=== PATIENT | female | born 1965 | race Caucasian/White ===

== ENCOUNTER → 2017-09-16 14:16 | Outpatient (CLI) | payer OTHER, MEDICAID, SELFPAY ==
[2017-09-16 14:49] LABS: INR 0.9 (0.9-1.3); Prothrombin Time 9.9 SECONDS (10.1-12.7)
[2017-09-16 14:51] LABS: PTT Partial Thromboplastin Tim 29 SECONDS (26.4-36.2)
[2017-09-16 14:57] LABS: Alanine Aminotransferase 30 IU/L (9-52); Albumin Globulin Ratio 1.3 (1.0-2.8); Alkaline Phosphatase 71 U/L (38-126); Aspartate Aminotransferase 25 IU/L (14-36); Bilirubin Total 0.5 mg/dL (0.2-1.3); Blood Urea Nitrogen 14 mg/dL (7-17); Carbon Dioxide 26 mmol/L (22-32); Chloride 104 mmol/L (98-107); Estimated Glomerular Filt Rate > 60.0 mL/min (>60); Globulin 3.1 g/dL (1.7-4.1); Glucose 99 mg/dL (70-100); HEMOLYSIS < 15 (0-50); Sodium 142 mmol/L (137-145); Total Protein 7.1 g/dL (6.3-8.2)
[2017-09-16 15:04] LABS: Hematocrit 24.7 % (36-46); Hemoglobin 8.1 g/dL (12.0-16.0); Mean Corpuscular HGB Conc 32.9 % (30-36); Mean Corpuscular Hemoglobin 24.6 PG (26-34); Mean Corpuscular Volume 74.7 fL (80-100); Red Blood Cell Count 3.31 X10^6/uL (4.0-5.2); Red Cell Distribution Width 21.9 % (11.6-14.8); White Blood Cell Count 2.8 X10^3/uL (4.5-11.0)
[2017-09-16 15:28] LABS: Add Manual Diff / Slide Review YES; Platelet Count 6 X10^3/uL (150-400)
[2017-09-16 15:36] LABS: Neutrophils Absolute Manual 224 /uL (3000-5900); Total Cells Counted 50
[2017-09-16 15:37] LABS: Anisocytosis 2+; Poikilocytosis 2+; Polychromasia 1+
[2017-09-20 09:43] LABS: Hepatitis A Antibody IgM NONREACTIVE; Hepatitis B Core Antibody IgM NONREACTIVE; Hepatitis B Surface Antigen NONREACTIVE; Hepatitis C Antibody NONREACTIVE
== END ==
PROVIDERS: Visit Provider Dentist Oral and Maxillofacial Surgery
DX: D69.6 Thrombocytopenia, unspecified (principal)
CPT/HCPCS: 36415; 80053; 80074; 85025; 85610; 85730

== ENCOUNTER 2017-09-16 18:00 | Emergency (ER) | payer OTHER, MEDICAID, SELFPAY ==
[2017-09-16] VITALS (7 sets, daily range): BP systolic 119–141; BP diastolic 67–76; PULSE 94–116; RESP 14–20; TEMP 36.6; O2SAT 96–100; BMI 19.9
--- NOTE | 2017-09-16 19:01 | ED_ITS ---
HPI - Recheck/Abnormal Lab/Rx General Chief Complaint: Recheck/Abnormal Lab/Rx Stated Complaint: states emergency platlett transfusion Time Seen by Provider: 09/16/17 18:15 Source: patient Mode of arrival: ambulatory Limitations: no limitations History of Present Illness HPI narrative: Otherwise healthy 52-year-old female who approximately 1 month ago saw a provider for TMJ issues. She was scheduled to follow up with a oral maxillofacial surgeon today to discuss these issues. She states that she was sent for blood work prior to this appointment and was called by that doctor's office to come to the emergency department immediately because her blood counts were low. Patient states that for the past year she has been bruising easily. She thinks that it has not changed in the past year. Denies any fevers. Denies any vomiting of blood. Denies any blood in her stool. States that she still is getting her menstrual cycles. She states that she has heavy short menstrual cycles but this is not new for her. No recent antibiotics. No recent medicines. No recent travel. Denies alcohol. Denies drug use. Denies smoking. Denies fatigue. No family history of bleeding problems. Related Data Allergies Allergy/AdvReac Type Severity Reaction Status Date / Time ibuprofen Allergy Verified 09/16/17 18:19 Sulfa (Sulfonamide Allergy Verified 09/16/17 18:19 Antibiotics) Review of Systems Constitutional Denies chills, Denies fever(s), Denies frequent falls, Denies headache(s), Denies lethargy and Denies weakness Eyes Denies change in vision, Denies diplopia and Denies loss of vision ENT Ears, Nose, Mouth, and Throat: Denies dental pain, Denies dysphagia, Denies vertigo, Denies dizziness, Denies dry mouth, Denies headache(s), Denies lip swelling, Denies epistaxis, Reports mouth lesions (Red spots in the back of her mouth), Denies mouth pain, Denies tinnitus, Denies sinus pain, Denies sore throat and Denies throat swelling Comments: TMJ pain 1 month ago but that has improved Cardiovascular Denies chest pain, Denies syncope, Denies irregular heart rhythm, Denies lightheadedness, Denies palpitations, Denies dyspnea, Denies dyspnea on exertion and Denies orthopnea Respiratory Denies cough, Denies dyspnea, Denies dyspnea on exertion and Denies wheezing Gastrointestinal Gastrointestinal: Denies melena, Denies hematochezia, Denies change in bowel habits, Denies dysphagia, Denies diarrhea, Denies nausea and Denies vomiting Genitourinary Denies amenorrhea, Denies hematuria and Denies dysuria Musculoskeletal Denies back pain, Denies muscle weakness, Denies numbness and Denies tingling Integumentary/Breasts Denies bleeding lesions and Denies pruritus Comments: An easy bruising Red patches Multiple scratches from her CT Neurologic Denies behavioral changes, Denies confusion, Denies vertigo, Denies dizziness, Denies syncope, Denies frequent falls, Denies headache(s), Denies loss of vision , Denies numbness, Denies tingling and Denies weakness Psychiatric Denies behavioral changes, Denies confusion and Denies mood swings Endocrine Denies palpitations Hematologic/Lymphatic Denies easy bleeding, Reports easy bruising and Denies lymphadenopathy Allergic/Immunologic Denies lip swelling, Denies throat swelling and Denies wheezing [facility] Social History Smoking Status: Never smoker Exam Initial Vital Signs Initial Vital Signs: Vital Signs Temperature 97.9 F 09/16/17 18:19 Pulse Rate 97 H 09/16/17 18:19 Respiratory Rate 14 09/16/17 18:19 Blood Pressure 140/73 H 09/16/17 18:19 Pulse Oximetry 100 09/16/17 18:19 Const General: cooperative, comfortable, No in distress, frail appearing and No ill appearing Nutritional Appearance: well nourished Orientation: alert, awake, oriented x3 and not confused [facility] Head: normal to inspection, normocephalic and atraumatic Nose: external nose normal Face and sinus: normal facial exam Mouth: moist mucous membranes, No mouth trauma, No tongue abnormal, No restricted motion and other (Pharyngeal petechiae) Teeth and gingiva: dentition normal Eyes Eyelids: eyelids normal Conjunctivae: other (Pale conjunctiva) Sclera: sclerae normal Pupils: PERRL Neck Neck: No lymphadenopathy Resp Effort & Inspection: normal respiratory effort, able to speak in complete sentences, no respiratory distress and no use of accessory muscles Auscultation: clear to auscultation bilaterally, no rales, no rhonchi and no wheezes Cardio Rate: regular rate Rhythm: regular rhythm Heart Sounds: no click, no gallops, no murmurs and no rubs Pulses: normal peripheral pulses GI Inspection: non-distended Palpation: soft, no hepatosplenomegaly, No firm, No guarding, No pulsatile mass , No splenomegaly and No tender Auscultation: normal bowel sounds Skin Other: Patient with multiple bruises on all 4 extremities. Petechiae noticed in the upper extremities and on her shoulders. Mild petechiae on her abdomen and back. Multiple wounds on her extremities and her face in multiple stages of healing which she states are scratches from her cats. No vesicles. No pustules. Neuro General: alert, oriented x3, gait normal and no focal motor deficits Cognition: normal cognition Speech: speech normal Motor: muscle tone normal throughout Sensory Exam: no sensory deficits noted Extrem General: full ROM, no clubbing, cyanosis or edema, no pedal edema and no calf tenderness Course Orders Ordered: ED Orders 09/16/17 18:22 Hepatitis Acute Panel Stat 09/16/17 18:45 Complete Blood Count AUTO DIFF Stat HIV 1 and 2 Antibody Stat Type and Screen Stat 09/16/17 18:48 Basic Metabolic Panel Stat Lactate (Lactic Acid) Stat Vital Signs - 8 hr 09/16/17 18:19 09/16/17 18:30 09/16/17 19:00 Temperature 97.9 F Pulse Rate 97 H 97 H 94 H Respiratory Rate 14 18 18 Blood Pressure 140/73 H Blood Pressure [Left Arm] 130/69 H 123/75 H Pulse Oximetry 100 100 99 09/16/17 19:30 09/16/17 20:00 09/16/17 20:30 Temperature Pulse Rate 96 H 116 H 97 H Respiratory Rate 16 18 18 Blood Pressure Blood Pressure [Left Arm] 122/68 H 141/76 H 140/67 H Pulse Oximetry 100 96 MDM - Recheck/Abnormal Lab/Rx Lab Data Attestation: I reviewed the patient's lab results. Result diagrams: 09/16/17 18:45 09/16/17 18:48 Lab Results 09/16/17 09/16/17 09/16/17 Range/Units 18:45 18:45 18:45 WBC 2.9 L (4.5-11.0) X10^3/uL RBC 3.31 L (4.0-5.2) X10^6/uL Hgb 8.1 L (12.0-16.0) g/dL Hct 24.6 L (36-46) % MCV 74.3 L (80-100) fL MCH 24.5 L (26-34) PG MCHC 32.9 (30-36) % RDW 21.5 H (11.6-14.8) % Plt Count 7 L* (150-400) X10^3/uL Neut % (Auto) 14.3 L (50-75) % Lymph % (Auto) 83.1 H (25-40) % [place] % (Auto) 1.6 L (3-14) % Eos % (Auto) 0.5 L (2-4) % Baso % (Auto) 0.5 (0-2) % Neut # (Auto) 400 L (4716-2113) /uL PT (10.1-12.7) SECONDS INR (0.9-1.3) APTT (26.4-36.2) SECONDS Sodium (137-145) mmol/L Potassium (3.4-5.1) mmol/L Chloride (98-107) mmol/L Carbon Dioxide (22-32) mmol/L BUN (7-17) mg/dL Creatinine (0.52-1.04) mg/dL Estimated GFR (>60) mL/min BUN/Creatinine Ratio (6-22) Glucose (70-100) mg/dL Lactate (0.7-2.1) mmol/L Calcium (8.4-10.2) mg/dL HIV 1&2 Antibody Negative (NEGATIVE) Blood Type O Positive Antibody Screen Negative 09/16/17 09/16/17 09/16/17 Range/Units 18:48 18:48 Unknown WBC (4.5-11.0) X10^3/uL RBC (4.0-5.2) X10^6/uL Hgb (12.0-16.0) g/dL Hct (36-46) % MCV (80-100) fL MCH (26-34) PG MCHC (30-36) % RDW (11.6-14.8) % Plt Count (150-400) X10^3/uL Neut % (Auto) (50-75) % Lymph % (Auto) (25-40) % [place] % (Auto) (3-14) % Eos % (Auto) (2-4) % Baso % (Auto) (0-2) % Neut # (Auto) (7727-0704) /uL PT 10.5 (10.1-12.7) SECONDS INR 1.0 (0.9-1.3) APTT 28 (26.4-36.2) SECONDS Sodium 141 (137-145) mmol/L Potassium 3.7 (3.4-5.1) mmol/L Chloride 103 (98-107) mmol/L Carbon Dioxide 27 (22-32) mmol/L BUN 12 (7-17) mg/dL Creatinine 0.70 (0.52-1.04) mg/dL Estimated GFR > 60.0 (>60) mL/min BUN/Creatinine Ratio 17.1 (6-22) Glucose 96 (70-100) mg/dL Lactate 0.8 (0.7-2.1) mmol/L Calcium 8.9 (8.4-10.2) mg/dL HIV 1&2 Antibody (NEGATIVE) Blood Type Antibody Screen MDM Narrative Medical decision making narrative: Patient is pancytopenic. Is neutropenic however is not febrile. No signs of active bleeding. Discussed the case with Dr. Krishnamurthy with Hematology Oncology at [facility] who recommended admission for further workup and concerns for leukemia. Discussed the case with Dr. Cuevas at [facility] with Internal Medicine who accepts patient. Will hold on any transfusions for now. I discussed patient's lab findings and concerns and transfer and admission with the patient and her family were at bedside. They expressed understanding. Expressed agreement with plan. Patient is stable for transport. Discharge Plan Departure Patient Disposition: [facility] Clinical Impression: Pancytopenia, Petechiae
[2017-09-16 19:11] LABS: Add Manual Diff / Slide Review NO; Basophils Percent Auto 0.5 % (0-2); Eosinophils Percent Auto 0.5 % (2-4); Hematocrit 24.6 % (36-46); Hemoglobin 8.1 g/dL (12.0-16.0); Lymphocytes Percent Auto 83.1 % (25-40); Mean Corpuscular HGB Conc 32.9 % (30-36); Mean Corpuscular Hemoglobin 24.5 PG (26-34); Mean Corpuscular Volume 74.3 fL (80-100); Monocytes Percent Auto 1.6 % (3-14); Neutrophils Absolute Auto 400 /uL (3000-5900); Neutrophils Percent Auto 14.3 % (50-75); Red Blood Cell Count 3.31 X10^6/uL (4.0-5.2); Red Cell Distribution Width 21.5 % (11.6-14.8); White Blood Cell Count 2.9 X10^3/uL (4.5-11.0)
[2017-09-16 19:12] LABS: Platelet Count 7 X10^3/uL (150-400)
[2017-09-16 19:23] LABS: BUN Creatinine Ratio 17.1 (6-22); Blood Urea Nitrogen 12 mg/dL (7-17); Calcium 8.9 mg/dL (8.4-10.2); Carbon Dioxide 27 mmol/L (22-32); Chloride 103 mmol/L (98-107); Estimated Glomerular Filt Rate > 60.0 mL/min (>60); Glucose 96 mg/dL (70-100); HEMOLYSIS < 15 (0-50); Lactate (Lactic Acid) 0.8 mmol/L (0.7-2.1); Potassium 3.7 mmol/L (3.4-5.1); Sodium 141 mmol/L (137-145)
[2017-09-16 19:27] LABS: Prothrombin Time 10.5 SECONDS (10.1-12.7)
[2017-09-16 19:30] LABS: PTT Partial Thromboplastin Tim 28 SECONDS (26.4-36.2)
[2017-09-16 20:18] LABS: HIV 1 and 2 Antibody NEGATIVE (NEGATIVE)
--- NOTE | 2017-09-16 21:27 | PC.NURSE ---
Phone report called to KRYSTLE Biswas at [facility] [place] for continuation of care and all questions answered.
[2017-09-20 09:43] LABS: Hepatitis A Antibody IgM NONREACTIVE; Hepatitis Acute Panel Interp 0.08; Hepatitis B Core Antibody IgM NONREACTIVE; Hepatitis B Surface Antigen NONREACTIVE; Hepatitis C Antibody NONREACTIVE
== END 2017-09-16 22:29 | disposition short-term general hospital (02) ==
PROVIDERS: Emergency Provider Emergency Medicine
DX: D61.818 Other pancytopenia (principal); R23.3 Spontaneous ecchymoses
CPT/HCPCS: 36415; 36591; 80048; 80053; 80074; 83605; 85025; 85610; 85730; 86703; 86850; 86900; 86901; 99283

== ENCOUNTER → 2018-05-25 14:33 | Oncology outpatient (ONC) | payer OTHER, MEDICAID, SELFPAY ==
[2018-05-25 15:06] VITALS: BP 127/80; PULSE 95; RESP 18; TEMP 36.2; O2SAT 100
--- NOTE | 2018-05-25 15:41 | ONC.CONS ---
History of Present Illness - Data of Consult Consult date: 05/25/18 - Consult Narrative Narrative: Diagnosis: T-cell LGL leukemia Previous treatment: Steroids and weekly methotrexate History of present illness: Virgen Acosta is a 53 year old female who is referred for further evaluation of LGL leukemia. The patient presented initially in September 2017. At that time, she was found to have marked thrombocytopenia with a platelet count of 7. She also had a anemia and leukopenia. She had a biopsy performed on September 20 that showed a mildly hypercellular marrow with decreased myeloid elements and a relative erythroid hyperplasia. There was an abnormal T-cell LGL population identified by flow cytometry in both the bone marrow and peripheral blood. There was no evidence of myelodysplasia. Cytogenetics were normal. T-cell receptor studies showed oligo clonal T-cell population. She was treated initially with steroids and IVIG without significant long-lasting response. She then started on weekly methotrexate and has been on it now for a little bit more than 6 months. She is currently on 15 mg weekly and tolerating it without any difficulty. She has had normalization in her white cell count and red cell count but her platelet count has remained low. She has had a couple of courses of dexamethasone 40 mg daily for 4 days with the brief mild improvements in her platelet count. Clinically, she has been feeling well. She notes that her strength and energy level have been good. She has not had any unusual bleeding or bruising. She denies any fevers chills or sweats. She has not had any infectious complications. She has not needed any antibiotics. She has not been aware of any splenomegaly. She has not noticed any adenopathy. She does not have any history of autoimmune conditions such as rheumatoid arthritis or lupus. Her current medications include weekly methotrexate folic acid iron and vitamin-C. Prior to her diagnosis, she was on no medications. For past medical history is really only notable for prior ovarian cyst and a benign breast biopsy. Her family history is negative for malignancy or blood dyscrasia. Social history: She does not smoke or drink alcohol. She is not currently working. She lives in [place]. CC: Sloan Kumar MD Home Medications and Allergies Home Medications Medication Instructions Recorded Confirmed Type ascorbic acid (vitamin C) [Vitamin 500 mg PO Q OTHER DAY 05/25/18 05/25/18 History C] ferrous sulfate 325 mg PO Q OTHER DAY 05/25/18 05/25/18 History folic acid 1 mg PO DAILY 05/25/18 05/25/18 History methotrexate sodium 15 mg PO WEEKLY 05/25/18 05/25/18 History Allergies Allergy/AdvReac Type Severity Reaction Status Date / Time ibuprofen Allergy Verified 09/16/17 18:19 Sulfa (Sulfonamide Allergy Verified 09/16/17 18:19 Antibiotics) Medical History - Social History Smoking Status: Never smoker Review of Systems Constitutional: normal activity level, no weight loss Cardiovascular: no dyspnea on exertion Gastrointestinal: no change in appetite, no abdominal pain Integumentary: no rash, no bleeding or bruising Exam - Constitutional positive no acute distress, positive thin - Routine HEENT Exam Head: Present: normocephalic, atraumatic Eye: Present: EOMI, PERRL. Absent: conjunctival icterus, scleral injection ENT: Present: mucous membranes moist, oropharynx clear, dentition normal - Routine Neck Exam Present: supple. Absent: lymphadenopathy, thyromegaly - Routine Chest/Breast/Axilla Exam Axillae: Absent: lymphadenopathy - Routine Respiratory Exam Present: Clear to auscultation bilaterally. Absent: rales, wheezes - Routine Cardiovascular Exam Present: RRR, S1, S2. Absent: murmur - Routine Abdominal Exam Present: soft, normoactive bowel sounds. Absent: tenderness, organomegaly Palpation/Percussion: Absent: splenomegaly - Routine Extremities Exam Absent: cyanosis, clubbing, edema - Routine Back/Spine Exam Back/Spine: Absent: paraspinal tenderness, vertebral tenderness - Routine Skin Exam Present: intact. Absent: petechiae Comments: She does have some erythema on the cheeks in the face. There is a few small excoriations. I do not see any petechiae or ecchymoses. - Routine Neurological Exam Present: alert, oriented X3 - Routine Psychiatric Exam Present: normal affect, normal thought process Assessment and Plan (1) Large granular lymphocytic leukemia Current visit: Yes Status: Acute 53-year-old woman diagnosed with T-cell LGL leukemia little bit more than 6 months ago. She has been treated with steroids and weekly methotrexate. She has had a partial remission with improvement in her white cell count and red cell count but remains notably thrombocytopenic. There does not appear to be a strong autoimmune condition is her counts really have not improved with steroids or IVIG. She is not requiring any transfusions and is not symptomatic. I have recommended that she continue with weekly methotrexate as she has been doing. I think would be quite reasonable to trying get a 2nd opinion at the [facility]. I have made a referral to Dr. Latif. A have not scheduled a follow-up appointment for the patient here but would be happy to see her again in the future should she elect to follow-up here.
--- NOTE | 2018-06-07 13:21 | ONC.SCHED ---
[facility] has not been able to reach the patient for a 2nd opinion consult. If patient should call here please advise to call [facility] directly
== END ==
DX: C91.Z0 Other lymphoid leukemia not having achieved remission (principal)
CPT/HCPCS: 99204; 99214

== ENCOUNTER 2018-07-06 22:41 | Emergency (ER) | payer OTHER, MEDICAID, SELFPAY ==
[2018-07-06 22:52] VITALS: BP 137/79; PULSE 90; RESP 16; TEMP 36.8; O2SAT 100
--- NOTE | 2018-07-06 22:55 | ED_ITS ---
HPI - General Adult General Chief complaint: Upper Respiratory Symptoms Stated complaint: tightness in throat Time Seen by Provider: 07/06/18 22:47 Source: patient and EMS Mode of arrival: EMS Limitations: no limitations History of Present Illness HPI narrative: Patient is a 53-year-old female with chronic medical problems here for evaluation of a lump in her throat. She just recently received an infusion for her leukemia. She is also started on valacyclovir and an antifungal. She states that she thinks she is started on these medications for preventative infection secondary to the infusions she is getting. She states that she took her 1st dose earlier today. She also states that after dinner she started to notice a lump in her throat. By the time I evaluated her here in the emergency department of bed approximately 4 hr since she had the onset of this lump. She denies any problems swallowing. Denies any problems breathing. No abdominal pain. has not tried anything for the symptoms prior to arrival Related Data Home Medications Medication Instructions Recorded Confirmed ascorbic acid (vitamin C) [Vitamin 500 mg PO Q OTHER DAY 05/25/18 05/25/18 C] ferrous sulfate 325 mg PO Q OTHER DAY 05/25/18 05/25/18 folic acid 1 mg PO DAILY 05/25/18 05/25/18 methotrexate sodium 15 mg PO WEEKLY 05/25/18 05/25/18 fluconazole 200 mg 07/06/18 valacyclovir BID 07/06/18 Allergies Allergy/AdvReac Type Severity Reaction Status Date / Time ibuprofen Allergy Verified 09/16/17 18:19 Sulfa (Sulfonamide Allergy Verified 09/16/17 18:19 Antibiotics) Review of Systems Constitutional Denies fever(s) and Denies headache(s) ENT Ears, Nose, Mouth, and Throat: Denies headache(s) and Reports sore throat Comments: lump in her throat Cardiovascular Denies chest pain, Denies palpitations and Denies dyspnea Respiratory Denies dyspnea Gastrointestinal Gastrointestinal: Denies abdominal pain, Denies nausea and Denies vomiting Genitourinary Denies dysuria Musculoskeletal Denies myalgias and Denies arthralgias Neurologic Denies behavioral changes and Denies headache(s) Psychiatric Denies behavioral changes Endocrine Denies palpitations Hematologic/Lymphatic Denies easy bleeding and Denies easy bruising [facility] Medical History Leukemia (Acute) Social History Smoking Status: Never smoker Social History Smoking Status: Never smoker Exam Initial Vital Signs Initial Vital Signs: Vital Signs Temperature 98.2 F 07/06/18 22:52 Pulse Rate 90 07/06/18 22:52 Respiratory Rate 16 07/06/18 22:52 Blood Pressure 137/79 07/06/18 22:52 Pulse Oximetry 100 07/06/18 22:52 Const General: cooperative, healthy appearing, comfortable, well developed, well groomed and No acute distress Orientation: alert, awake and oriented x3 HENMT Head: normal to inspection and normocephalic Ears: hearing grossly normal bilaterally Nose: external nose normal Face and sinus: normal facial exam Mouth: oral mucosae normal Teeth and gingiva: dentition normal Throat: posterior oropharynx normal Eyes Pupils: PERRL Neck Lymphatic: No lymphadenopathy Resp Effort & Inspection: normal respiratory effort Auscultation: clear to auscultation bilaterally Cardio Rate: regular rate Rhythm: regular rhythm GI Inspection: non-distended Palpation: soft Neuro General: alert, awake and oriented x3 Cognition: normal cognition Speech: speech normal Extrem General: normal to inspection and capillary refill normal Psych Appearance: grossly normal and well kempt Medical Decision Making Lab Data Point of Care Testing Rapid Strep A Negative Point of care testing: Point of Care Testing Rapid Strep A Negative MDM Narrative Medical decision making narrative: patient is not in any respiratory distress. Strep throat is negative. Has a normal exam. Symptoms have been going on for least 4 hr without any worsening of the symptoms. Doubt anaphylaxis. Some concern for potential pill esophagitis. Unsure the exact onset whether it is something that she ate with dinner or the medicines that she started yesterday or potentially the infusion. She stated that the medicine that was infusion she was told could potentially cause the symptoms. No indication for steroids or Benadryl more epinephrine. Patient is tolerating secretions. Will hold on further workup for now. Patient was given return precautions. She expressed understanding and agreement with plan. Discharge Plan Departure Patient Disposition: Home Clinical Impression: Dysphagia Qualifiers: Dysphagia type: unspecified Qualified Code(s): R13.10 - Dysphagia, unspecified Discharge Date/Time: 07/06/18 23:55 Interventions: ED Discharge Assessment Last Done: 07/07/18 00:06 Instructions: Esophageal Dysphagia Activity Restrictions/Additional Instructions: recommend that you talk to your providers at the [facility] tomorrow before taking any more of her medication. Return to the emergency department for any new symptoms, fevers, problems swallowing, problems breathing, or any other concerning symptoms. Prescriptions: No Action ferrous sulfate 325 mg (65 mg iron) Tablet 325 mg PO Q OTHER DAY RF: 0 methotrexate sodium 2.5 mg 15 mg PO WEEKLY RF: 0 ascorbic acid (vitamin C) [Vitamin C] 500 mg Tablet 500 mg PO Q OTHER DAY RF: 0 folic acid 1 mg Tablet 1 mg PO DAILY RF: 0 fluconazole 200 mg RF: 0 valacyclovir 500 mg Tablet BID RF: 0
== END 2018-07-06 23:55 | disposition home or self-care (01) ==
PROVIDERS: Emergency Provider Emergency Medicine
DX: R13.10 Dysphagia, unspecified (principal)
CPT/HCPCS: 87880; 99282